=== PATIENT | male | born 1955 | race Two or more races ===

== ENCOUNTER 2018-06-05 02:31 | Emergency (ER) | payer BC ==
[~2018-06-05] VITALS: Ht 172.7 cm; Wt 87.5 kg
[2018-06-05] MEDS ORDERED: RAMI5CAP66 PO (02:45)
[2018-06-05] MEDS ORDERED: ATOR80TA PO (02:45)
--- NOTE | 2018-06-05 02:47 | NUR ---
Dr. Alejandre at bedside for MSE.
[2018-06-05] MEDS ORDERED: ONDANSETRON 4 MG/2 ML VIAL ONE (02:55)
[2018-06-05] MEDS ORDERED: HYDROMORPHONE 1 MG/1 ML DISP.SYRIN ONE (02:55)
--- NOTE | 2018-06-05 02:55 | NUR ---
Pt provided urine sample, sent to lab.
[2018-06-05] MEDS ORDERED: ONDANSETRON 4 MG/2 ML VIAL IV ONE (03:00)
[2018-06-05] MEDS ORDERED: IV NORMAL SALINE 1000 ML BAG IV ONE (03:00)
[2018-06-05] MEDS ORDERED: HYDROMORPHONE 1 MG/1 ML DISP.SYRIN IV ONE (03:00)
--- NOTE | 2018-06-05 03:07 | NUR ---
Pt out of ER for CT.
[2018-06-05 03:08] LABS: *BILIRUBIN,URIN NEGATIVE (NEGATIVE); *BLOOD, URINE NEGATIVE (NEGATIVE); *CLARITY,URINE CLEAR (CLEAR); *COLOR,URINE YELLOW (YELLOW); *KETONES,URINE NEGATIVE (NEGATIVE); *PROTEIN,URINE NEGATIVE (NEGATIVE); *UROBILINOGEN,URINE 0.2 E.U./dl (NORMAL); LEUKOCYTE ESTERASE ,URINE NEGATIVE (NEGATIVE); NITRITE, URINE NEGATIVE (NEGATIVE); UGLUCOSE NEGATIVE (NEGATIVE)
[2018-06-05 03:12] LABS: BASOPHILS # (AUTO) 0.1 K/uL (0.0-8.0); BASOPHILS % (AUTO) 0.9 % (0.0-2.0); EOSINOPHILS # (AUTO) 0.7 K/uL (0.0-0.7); EOSINOPHILS % (AUTO) 11.2 % (0.0-7.0); HEMATOCRIT 45.8 % (36.7-47.1); HEMOGLOBIN 15.8 g/dL (12.5-16.3); LYMPHOCYTES # (AUTO) 2.2 K/uL (20.0-40.0); LYMPHOCYTES % (AUTO) 37.4 % (20.5-51.5); MEAN CORPUSCULAR HEMOGLOBIN 31.8 uug (23.8-33.4); MEAN CORPUSCULAR HGB CONC 35 g/dL (32.5-36.3); MEAN CORPUSCULAR VOLUME 92.2 fL (73.0-96.2); MONOCYTES # (AUTO) 0.5 K/uL (2.0-10.0); MONOCYTES % (AUTO) 8.1 % (0.0-11.0); NEUTROPHILS # (AUTO) 2.5 K/uL (1.8-8.9); NEUTROPHILS % (AUTO) 42.4 % (38.5-71.5); PLATELET COUNT (AUTO) 193 K/uL (152-348); RED BLOOD CELL COUNT(AUTO) 4.97 MIL/uL (4.06-5.63); WHITE BLOOD COUNT (AUTO) 5.8 K/uL (3.6-10.2)
[2018-06-05 03:22] LABS: BACTERIA,URINE NONE SEEN /HPF (NONE SEEN); MUCUS,URINE FEW /LPF (0-FEW); RBC,URINE 0-3 /HPF (0-3); SQUAMOUS EPITHELIAL CELL,UR FEW /HPF (NONE SEEN); WBC,URINE 0-3 /HPF (0-3)
[2018-06-05 03:23] LABS: CREATININE 0.9 mg/dL (0.6-1.3); POTASSIUM 3.8 mmol/L (3.5-5.1)
--- NOTE | 2018-06-05 03:23 | NUR ---
Pt back to ER from CT.
[2018-06-05 03:29] LABS: BILIRUBIN,DIRECT 0.1 mg/dL (0.0-0.2); BILIRUBIN,TOTAL 0.5 mg/dL (0.2-1.0); TOTAL PROTEIN, SERUM 7.4 g/dL (6.4-8.2)
[2018-06-05] MEDS ORDERED: MAGNESIUM HYDROXIDE 30 ML LIQUID UDC ONE (03:36)
--- NOTE | 2018-06-05 03:43 | NUR ---
Patient discharged to home in stable conditon. Written and verbal after care instructions given. Patient verbalizes understanding of instructions. Patient ambulated out of ER with steady gait, no acute signs of distress, VSS, all belongings taken, IV site discontinued.
[2018-06-05 03:44] VITALS: BP 154/84
[2018-06-05] MEDS ORDERED: MAGNESIUM HYDROXIDE 30 ML LIQUID UDC PO ONE (03:45)
== END 2018-06-05 03:50 | disposition home or self-care (01) ==
LOC: ER 02:40
DX: K59.00 Constipation, unspecified (principal); I10 Essential (primary) hypertension; E78.5 Hyperlipidemia, unspecified
CPT/HCPCS: 36415; 71045; 74176; 80048; 80076; 81001; 83690; 84484; 85025; 85730; 87086; 96374; 96375; 99285; J1170; J2405; 70030-TC; A4663; J7030

== ENCOUNTER 2018-06-05 13:56 | Emergency (ER) | payer BC ==
[~2018-06-05] VITALS: Ht 172.7 cm; Wt 88.5 kg
[~2018-06-05 13:56] MED LIST: ATOR80TA PO; RAMI5CAP66 PO
--- NOTE | 2018-06-05 14:36 | NUR ---
Pt.was seen by ,no s/s of acute distress.
[2018-06-05] MEDS ORDERED: IV NORMAL SALINE 1000 ML BAG IV ONE (15:00)
--- NOTE | 2018-06-05 15:06 | NUR ---
Pt signed consent for CT abd/pelvis with IV contrast after speaking with .
--- NOTE | 2018-06-05 15:43 | NUR ---
PT.DRINKING ORAL CONTRAST,WATCHING TV,NO S/S OF DISTRESS.
[2018-06-05] MEDS ORDERED: DIATR MEGLU/DIATRIZOATE SODIUM 120 ML BOTTLE PO ONE (15:45)
[2018-06-05] MEDS ORDERED: IOHEXOL 300MG/ML 100 ML INFUS..BTL ONE (16:05)
[2018-06-05] MEDS ORDERED: SWABABLE VALVE TRANSFER SET EA MC ONE (16:05)
[2018-06-05] MEDS ORDERED: IV NORMAL SALINE 250 ML IV ONE (16:05)
[2018-06-05] MEDS ORDERED: NORMAL SALINE FLUSH 10 ML DISP.SYRIN ONE (16:05)
--- NOTE | 2018-06-05 16:42 | NUR ---
PT.BACK FROM CT, WATCHING TV.
[2018-06-05] MEDS ORDERED: IBUPROFEN 800 MG TABLET ONE (17:29)
[2018-06-05] MEDS ORDERED: IBUPROFEN 800 MG TABLET PO ONE (17:30)
[2018-06-05 17:34] VITALS: BP 138/82
== END 2018-06-05 17:36 | disposition home or self-care (01) ==
LOC: ER 13:56
DX: R10.12 Left upper quadrant pain (principal); I10 Essential (primary) hypertension; E78.5 Hyperlipidemia, unspecified
CPT/HCPCS: 74177; 99284; Q9967; A4663; J3490; J7030; J7050